=== PATIENT | male | born 1960 | race Caucasian/White ===

== ENCOUNTER 2018-11-12 17:17 | Emergency (ER) | payer BC, OTHER ==
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
== END 2018-11-12 19:37 | disposition home or self-care (01) ==
LOC: ER 17:17
DX: S39.012A Strain of muscle, fascia and tendon of lower back, initial encounter (principal); V44.5XXA Car driver injured in collision with heavy transport vehicle or bus in traffic accident, initial encounter; Z79.4 Long term (current) use of insulin; Z88.6 Allergy status to analgesic agent; I10 Essential (primary) hypertension; E11.9 Type 2 diabetes mellitus without complications
CPT/HCPCS: 74176

== ENCOUNTER 2022-12-19 10:20 | Day surgery (SDC) | payer OTHER ==
[2022-12-16 09:50] LABS: Potassium 4.5 mmol/L (3.5-5.1)
--- NOTE | 2022-12-16 16:17 | EKG ---
Test Date: 2022-12-16 Test Time: 08:57:51 Student Education Specialist: ANG MEASUREMENT RESULTS: Intervals: Rate: 70 MO: 166 QRSD: 82 QT: 374 QTc: 403 Jones: P: 51 MO: 166 QRS: -35 T: 52 INTERPRETIVE STATEMENTS: Normal sinus rhythm Left axis deviation Abnormal ECG No previous ECG available for comparison Electronically Signed On 12-16-22 16:16:33 FACILITIES ENGINEERING MANAGER by Yannick Donohue
[2022-12-19] MEDS ORDERED: NA CHLORIDE 0.9% 1,000 ML ONE (10:49)
[2022-12-19] MEDS ORDERED: propofoL 200 MG/20 ML VIAL IV ONE ×2 (12:28→13:19)
[2022-12-19] MEDS ORDERED: LIDOCAINE 1% MPF 5 ML VIAL ONE (12:28)
[2022-12-19 14:05] VITALS: TEMP 96.7
[2022-12-19 15:23] VITALS: O2SAT 97
[2022-12-19 15:25] VITALS: BP 106/64
== END 2022-12-19 14:54 | disposition home or self-care (01) ==
LOC: OR 10:20
PROVIDERS: ATTEND Surgery
PROC: 0DBF8ZX Excision of Right Large Intestine, Via Natural or Artificial Opening Endoscopic, Diagnostic (ICD-10-PCS; 2022-12-19)
PROC: 0DB98ZX Excision of Duodenum, Via Natural or Artificial Opening Endoscopic, Diagnostic (ICD-10-PCS; 2022-12-19)
PROC: 0DB78ZX Excision of Stomach, Pylorus, Via Natural or Artificial Opening Endoscopic, Diagnostic (ICD-10-PCS; 2022-12-19)
PROC: 0DB68ZX Excision of Stomach, Via Natural or Artificial Opening Endoscopic, Diagnostic (ICD-10-PCS; 2022-12-19)
PROC: 0DBG8ZX Excision of Left Large Intestine, Via Natural or Artificial Opening Endoscopic, Diagnostic (ICD-10-PCS; principal; 2022-12-19 11:45)
PROC: 0DBP8ZX Excision of Rectum, Via Natural or Artificial Opening Endoscopic, Diagnostic (ICD-10-PCS; 2022-12-19 11:45)
DX: R11.10 Vomiting, unspecified (principal); Z12.11 Encounter for screening for malignant neoplasm of colon; E11.9 Type 2 diabetes mellitus without complications; I10 Essential (primary) hypertension; K21.9 Gastro-esophageal reflux disease without esophagitis; E78.00 Pure hypercholesterolemia, unspecified; K64.8 Other hemorrhoids; K29.50 Unspecified chronic gastritis without bleeding; K44.9 Diaphragmatic hernia without obstruction or gangrene; K21.00 Gastro-esophageal reflux disease with esophagitis, without bleeding; D12.2 Benign neoplasm of ascending colon; D12.4 Benign neoplasm of descending colon; Z86.19 Personal history of other infectious and parasitic diseases
CPT/HCPCS: 93005; 80048; 36415; 88312; 82947; 88305; 45385; 43239; J2704 ×2; J2001; J7030